=== PATIENT | male | born 1995 | race Caucasian/White ===

== ENCOUNTER 2021-03-29 15:36 | Emergency (ER) | payer BC ==
[2021-03-29] MEDS ORDERED: Boostrix 0.5 ML (Tdap) VIAL ONE (16:49)
== END 2021-03-29 17:34 | disposition home or self-care (01) ==
LOC: ERS 15:36
DX: S01.01XA Laceration without foreign body of scalp, initial encounter (principal); Z23 Encounter for immunization; W01.198A Fall on same level from slipping, tripping and stumbling with subsequent striking against other object, initial encounter; Y92.89 Other specified places as the place of occurrence of the external cause; Y99.0 Civilian activity done for income or pay
CPT/HCPCS: 12001; 90471; 90715

== ENCOUNTER 2024-05-02 08:14 | Outpatient (CLI) | payer BC | END 2024-05-02 08:15 | disposition home or self-care (01) | LOC: SCSMRI 08:14 | PROVIDERS: ATTEND Orthopaedic Surgery | DX: M54.16 Radiculopathy, lumbar region (principal); M54.50 Low back pain, unspecified; M43.16 Spondylolisthesis, lumbar region; M48.07 Spinal stenosis, lumbosacral region | CPT/HCPCS: 72148 ==